=== PATIENT | female | born 1995 | race Hispanic/Latino ===

== ENCOUNTER → 2020-03-08 | Outpatient (CLI) | payer OTHER ==
--- NOTE | 2020-03-08 11:23 | Diagnostic Imaging Report ---
Exam: KUB - 2 views Indication: Constipation Comparison: None Findings: Nonobstructive bowel gas pattern. No free air. Normal stool burden in the colon. No acute osseous injury. Phleboliths in the pelvis. Impression: No acute radiographic abnormality. Signed by: Kentrell Latham MD on 03/08/2020 11:20 AM
== END ==
LOC: RAD 10:34
PROVIDERS: ATTEND Internal Medicine
DX: K59.00 Constipation, unspecified (principal)
CPT/HCPCS: 74018